=== PATIENT | male | born 1990 | race Caucasian/White ===

== ENCOUNTER 2016-12-14 00:06 | Observation (INO) | payer OTHER ==
[2016-12-14 00:25] LABS: BASOPHIL COUNT 0.1 K/uL (0-0.1); EOSINOPHIL (%) 2.1 % (0-5); EOSINOPHIL COUNT 0.2 K/uL (0-0.3); HEMATOCRIT 43.3 % (38.0-50.0); IMMATURE GRANULOCYTE COUNT 0.1 K/uL; INSTRUMENT ABS NEUTROPHIL CT 5.1 K/uL; LYMPHOCYTE COUNT 4.3 K/uL (1.0-2.8); MCH 30.3 PG (29.0-34.0); MCHC 33.5 G/DL (30.0-36.0); MCV 90.6 FL (86-99); MEAN PLAT.VOLUME 9.2 uM^3 (9.0-12.4); MONOCYTE (%) 8.6 % (3-12); MONOCYTE COUNT 0.9 K/uL (0-0.8); NEUTROPHIL COUNT 5.1 K/uL (1.8-6.4); PLATELET COUNT 253 K/uL (156-360); RBC DIS.WIDTH-CV 14.3 % (11.8-14.6); RBC DIS.WIDTH-SD 47.2 % (39-53); RED BLOOD COUNT 4.78 M/uL (4.00-5.50); WHITE BLOOD COUNT 10.7 K/uL (4.1-10.2)
[2016-12-14 00:33] LABS: AMYLASE 56 IU/L (1-118); CHLORIDE 108 mEq/L (99-109); POTASSIUM 3.9 mEq/L (3.7-5.4); SODIUM 143 mEq/L (136-147)
[2016-12-14 00:34] LABS: GLUCOSE 118 mg/dL (70-99)
[2016-12-14 00:36] LABS: ANION GAP 12 MEQ/L (2-14)
[2016-12-14 00:38] LABS: SERUM ETHYL ALCOHOL 276 mg/dL
[2016-12-14 00:41] LABS: LIPASE 42 U/L (1.0-51.0)
[2016-12-14 00:42] LABS: GFR ESTIMATE (CALCULATED) > 59 mL/min/
[2016-12-14 02:22] LABS: UREA NITROGEN (BUN) 10 mg/dL (9-23)
[2016-12-14 02:24] LABS: ADD MIUA? YES; BILIRUBIN NEGATIVE; BLOOD SMALL; COLOR STRAW ((YELLOW)); GLUCOSE (STRIP) NEGATIVE; KETONES NEGATIVE; LEUKOCYTES NEGATIVE; NITRITE NEGATIVE; PROTEIN (STRIP) NEGATIVE; SPECIFIC GRAVITY 1.019 (1.000-1.030); UROBILINOGEN 0.2 MG/DL (0.2-1.0)
[2016-12-14 02:29] LABS: BACTERIA NONE SEEN /HPF; EPITHELIAL CELLS NONE SEEN /HPF; MUCUS NONE SEEN /LPF; RED BLOOD CELLS 0-5 /HPF (0-5); UCUL ADDED? NO; WHITE BLOOD CELLS 0-5 /HPF (0-5)
[2016-12-14 02:37] LABS: COCAINE PRESUMPTIVE POSITIVE (150 ng/mL); PHENCYCLIDINE NEGATIVE (25 ng/mL); THC CANNABINOIDS NEGATIVE (50 ng/mL)
[2016-12-14 02:38] LABS: ADD MEDTOX COMMENT Y; AMPHETAMINE NEGATIVE (500 ng/mL); BARBITURATES NEGATIVE (200 ng/mL); BENZODIAZEPINES NEGATIVE (150 ng/mL); INTERNAL CONTROLS VALID? YES; METHADONE NEGATIVE (200 ng/mL); METHAMPHETAMINE NEGATIVE (500 ng/mL); OPIATES (MORPHINE) NEGATIVE (100 ng/mL); OXYCODONE NEGATIVE (100 ng/mL); PROPOXYPHENE NEGATIVE (300 ng/mL); TRICYCLIC ANTIDEPRESSANTS NEGATIVE (300 ng/mL)
[2016-12-14 04:29] VITALS: BP 133/83
[2016-12-14] MEDS ORDERED: HALDOL5 MG PO (06:26)
[2016-12-14] MEDS ORDERED: BUSPAR30 MG PO (06:27)
[2016-12-14] MEDS ORDERED: COGENTIN0.5 MG PO (06:28)
[2016-12-14] MEDS ORDERED: PROZAC40 MG PO (06:29)
[2016-12-14] MEDS ORDERED: PRAZOSIN HCL1 MG PO (06:29)
[2016-12-14] MEDS ORDERED: ABILIFY2 MG PO (06:31)
[2016-12-14] MEDS ORDERED: KLONOPIN0.5 M1 PO (06:32)
[2016-12-14 07:43] VITALS: BP 108/62
[2016-12-14] MEDS ORDERED: SEROQUEL50 MG PO (08:03)
[2016-12-14] MEDS ORDERED: SEROQUEL300 MG PO (08:04)
[2016-12-14 10:28] VITALS: BP 127/69
== END 2016-12-14 13:13 | disposition home or self-care (01) ==
LOC: TRA 00:06 → EDOF 01:55 → 3EAST 01:55 → EDOF 01:55 → 3EAST 03:47
PROC: 0HQ1XZZ Repair Face Skin, External Approach (ICD-10-PCS; principal; 2016-12-14)
DX: S06.5X9A Traumatic subdural hemorrhage with loss of consciousness of unspecified duration, initial encounter (principal); S01.81XA Laceration without foreign body of other part of head, initial encounter; V23.4XXA Motorcycle driver injured in collision with car, pick-up truck or van in traffic accident, initial encounter; F10.129 Alcohol abuse with intoxication, unspecified; F31.9 Bipolar disorder, unspecified; F17.210 Nicotine dependence, cigarettes, uncomplicated; M54.2 Cervicalgia; M54.9 Dorsalgia, unspecified
CPT/HCPCS: 70450; 70486; 71260; 72125; 72129; 72132; 74177; 80048; 81003; 82150; 83690; 84999; 85025; 86900; 86901; G0378; G0480; J2405; J3480